=== PATIENT | male | born 1990 | race Caucasian/White ===

== ENCOUNTER 2024-03-31 23:22 | Emergency (ER) | payer OTHER, SELFPAY ==
[2024-03-31 23:29] VITALS: BP 137/93; BMI 21.7
--- NOTE | 2024-03-31 23:58 | ED.GENMED ---
History of Present Illness
General
Chief Complaint: Skin Problem
Source: patient and other ()
Time Seen by Provider: 03/31/24 23:37
History of Present Illness
History of Present Illness:
Patient with a history of IV fentanyl use. Last use earlier today. Currently being arrested and taken to senior care. The senior care would not take him because of his rash on his feet. Patient uses IV heroin wherever he can neck arms feet. Denies systemic
symptoms. Patient has been awake throughout his incarceration so far
Past History
Past History
ED Past Medical History: Other (Substance abuse/IVDA)
ED Past Surgical History: Orthopedic and Tonsilectomy
Review of Systems
Review of Systems
All Other Systems: Not applicable
Constitutional: Denies fever or chills
Phy Exam
Physical Exam
Physical Exam:
GENERAL: Sleeping but easily arousable. Will answer questions appropriately. Stable vital signs. Disheveled appearing
EYE: Orbits normal.
NECK: Supple
CARDIAC: Regular rate and rhythm without any obvious murmurs.
LUNGS: Clear breath sounds,normal
ABDOMEN: Soft, without focal tenderness or distention
NEUROLOGICAL: Alert and oriented , grossly non-focal
SKIN: Warm and dry, areas of scabs or old IV sites in the neck arms legs. No obvious abscess. His feet have areas of superficial ulcerations with a small area of surrounding erythema to the right foot and the arch. No fluctuance. No drainage.
MUSCULOSKELETAL: No edema,no deformity.Good color
PSYCH: Normal and appropriate interaction.
Course
Vital Signs
Initial and Last Documented VS:
Initial Vital Signs
Pulse Resp BP Pulse Ox
57 16 137/93 100
03/31/24 23:29 03/31/24 23:29 03/31/24 23:29 03/31/24 23:29
Last Documented Vital Signs
Pulse Resp BP Pulse Ox
57 16 137/93 100
03/31/24 23:29 03/31/24 23:29 03/31/24 23:29 03/31/24 23:29
MDM/Problems Addressed
Differential Diagnosis Includes:
No sign of systemic infection. Stable vital signs. No sign of overdose issue. Patient denies body packing or body stuffing. As for the rash and skin breakdown most of this has chronic inflammatory changes. The only area of possible early
infection is at the right foot near the arch. No indication for IV antibiotics or admission. Will cover with doxycycline to follow-up
*Pulse Oximetry
Patient hypoxic: no
*Critical Care Note
Total Time (30-74mins, 75-104mins- exclusive of procedures): Not Applicable
ED Attending Note
-
Portions of this chart may have been created with voice recognition software.� Occasional wrong word or��sound alike� substitutions may have occurred due to the inherent limitations of voice recognition software.
Discharge Plan
Departure
Patient Disposition: Home (Routine Discharge)
Date of Disposition: 04/01/24
Time of Disposition: 00:00
Patient with high blood pressure during this ER visit?: Yes
Discharge Problem:
Skin breakdown secondary to IVDA
Instructions: Wound Care (DC), BLOOD PRESSURE
Prescriptions:
New
doxycycline hyclate 100 mg capsule
100 mg PO BID 10 Days Qty: 20 0RF
No Action
Suboxone
8 mg transdermal TID
Activity Restrictions/Additional Instructions:
Patient is cleared for incarceration
Wound care and antibiotics as directed
Watch these wounds closely for further infection
Interventions
Interventions:
*Risk Screen - Suicide Last Done: 03/31/24 23:29
*General Assessment Last Done: 03/31/24 23:29
*Neglect/Abuse Screening Last Done: 03/31/24 23:29
*ED COVID-19 Vaccine History Last Done: 03/31/24 23:29
ED-Skin Assessment Last Done: 03/31/24 23:36
Discharge Date and Time
Print Language: ARMENIAN
[2024-04-01] MEDS: VIBRAMYCIN 100 MG PO (00:12)
== END 2024-04-01 00:16 | disposition home or self-care (01) ==
LOC: EMR 23:22
PROVIDERS: EMERGENCY PHYSICIAN Emergency Medicine
DX: L27.0 Generalized skin eruption due to drugs and medicaments taken internally (principal); F19.10 Other psychoactive substance abuse, uncomplicated
CPT/HCPCS: 99282